=== PATIENT | female | born 1980 | race Caucasian/White ===

== ENCOUNTER 2016-10-08 09:14 | Emergency (ER) | payer OTHER ==
[~2016-10-08] VITALS: Ht 154.9 cm; Wt 113.4 kg
[~2016-10-08 09:14] MED LIST: FEVERALL325 M1 PO
[2016-10-08 09:26] VITALS: BP 135/73
--- NOTE | 2016-10-08 09:29 | NUR ---
PT AMBULATED TO BED 5 AT THIS TIME.
--- NOTE | 2016-10-08 09:30 | NUR ---
[facility] ER MD DR. SALINAS FOR PT EXAM OF ABSCESS TO LEFT BREAST.
--- NOTE | 2016-10-08 09:30 | NUR ---
36F BIB SELF C/O ABSCESS TO LEFT BREAST, THROBBING, NON-RADIATING, 8/10 X YESTERDAY; REDNESS NOTED TO SITE, BUT NO DRAINAGE NOTED AT THIS TIME; PT A&OX4, PERRLA, BL LUNG SOUNDS CLEAR, RR EVEN/UNLABORED, SKIN IS WARM/DRY/INTACT AT THIS TIME; PT DENIES N/V/D AT THIS TIME; PT RESTING IN BED W/ HOB ELEVATED AND IN LOWEST POSITION; POSITIONED FOR COMFORT; ER MD MADE AWARE OF STATUS. WILL CONTINUE TO MONITOR.
--- NOTE | 2016-10-08 09:30 | NUR ---
Dr. Patino evaluating patient at bedside.
[2016-10-08 09:56] VITALS: BP 116/67
--- NOTE | 2016-10-08 09:56 | NUR ---
Patient discharged with v/s stable. Written and verbal after care instructions given and explained. Patient alert, oriented and verbalized understanding of instructions. Ambulatory with steady gait. All questions addressed prior to discharge. ID band removed. Patient advised to follow up with PMD. Rx of MOTRIN 600MG TAB & KEFLEX 500MG given. Patient educated on indication of medication including possible reaction and side effects. Opportunity to ask questions provided and answered.
== END 2016-10-08 09:56 | disposition home or self-care (01) ==
LOC: MED 09:14
DX: N61.1 Abscess of the breast and nipple (principal)

== ENCOUNTER 2017-07-30 05:57 | Emergency (ER) | payer OTHER ==
[~2017-07-30] VITALS: Ht 154.9 cm; Wt 115.7 kg
[~2017-07-30 05:57] MED LIST changes: +ACET325S31 PO; -FEVERALL325 M1 PO
[2017-07-30 05:59] VITALS: BP 118/65
--- NOTE | 2017-07-30 06:04 | NUR ---
PT TAKEN TO BED 11
--- NOTE | 2017-07-30 06:06 | NUR ---
PATIENT IS A 37 Y/O FEMALE WHO PRESENTS TO THE ED C/O COUGH. PT STATES THAT IT HAS BEEN HURTING HER THROAT FOR 3 DAYS. PT REPORTS 10/10 ACHING THROAT PAIN THAT DOES NOT RADIATE. PT DENIES CP, SOB, N/V/D. PT AAOX4, RR EVEN/UNLABORED. PT REPOSITIONED FOR COMFORT, BED IN LOWEST POSITION. ER MD DR. TALAMANTES NOTIFIED. WILL CONTINUE TO MONITOR.
[2017-07-30 06:27] VITALS: BP 121/72
--- NOTE | 2017-07-30 06:27 | NUR ---
Patient discharged with v/s stable. Written and verbal after care instructions given and explained. Patient alert, oriented and verbalized understanding of instructions. Ambulatory with steady gait. All questions addressed prior to discharge. ID band removed. Patient advised to follow up with PMD. Rx of PROMETHAZINE DM 6.25MG-15MG/5ML given. Patient educated on indication of medication including possible reaction and side effects. Opportunity to ask questions provided and answered.
== END 2017-07-30 06:27 | disposition home or self-care (01) ==
LOC: MED 05:57
DX: J06.9 Acute upper respiratory infection, unspecified (principal); Z79.899 Other long term (current) drug therapy; Z91.018 Allergy to other foods
CPT/HCPCS: 99283

== ENCOUNTER 2019-05-08 14:10 | Emergency (ER) | payer MEDICAID, OTHER ==
[~2019-05-08] VITALS: Ht 154.9 cm; Wt 124.3 kg
[2019-05-08 14:42] VITALS: BP 129/79
--- NOTE | 2019-05-08 16:04 | NUR ---
PATIENT AMBULATED TO BED 10.
--- NOTE | 2019-05-08 16:10 | NUR ---
C/O L BREAST ABCESS/PAIN X1 DAY. PT STATES SHE HAS HAD THIS BEFORE ON THE SAME BREAST AND HAS HAD TO HAVE IT DRAINED BEFORE. DENIES FEVER, N/V HX: NONE RX: NONE
--- NOTE | 2019-05-08 17:45 | NUR ---
accompanied DR. TUCKER FOR female patient Ultrasound.
[2019-05-08] MEDS ORDERED: LIDOCAINE MPF 1% 10 MG/ML VIAL INJ ONE (17:50)
--- NOTE | 2019-05-08 19:34 | NUR ---
DR. DAS PERFORMING I&D AT BEDSIDE.
--- NOTE | 2019-05-08 20:18 | NUR ---
ISLAND COMPOSITE DRESSING PLACED ON PT INCISION SITE ON L BREAST, SEALED TO PT BODY
[2019-05-08 20:36] VITALS: BP 130/72
== END 2019-05-08 20:36 | disposition home or self-care (01) ==
LOC: MED 14:10
DX: N61.1 Abscess of the breast and nipple (principal); Z79.899 Other long term (current) drug therapy
CPT/HCPCS: 10060; 99283; J2001

== ENCOUNTER 2019-05-10 05:39 | Emergency (ER) | payer MEDICAID ==
[~2019-05-10] VITALS: Ht 154.9 cm; Wt 124.3 kg
[2019-05-10 05:45] VITALS: BP 100/68
--- NOTE | 2019-05-10 05:45 | NUR ---
PT AMBULATED TO BED #12
--- NOTE | 2019-05-10 05:47 | NUR ---
39 Y/O FEMALE PRESENTS TO ED FOR A WOUND CHECKUP. PT STATES BEING D/C FROM ED FOR AN ABSCESS. WOUND WAS TREATED AND DRAINED PRIOR TO D/C; WAS ADVISED TO RETURN TO ED FOR FOLLOW UP CHECKUP. PT DENIES ANY ABNORMAL DISCHARGE OR BLEEDING. C/O MILD PAIN ON WOUND, 06/17. PT VSS ERMD AWARE. WILL CONTINUE TO MONITOR.
--- NOTE | 2019-05-10 06:05 | NUR ---
Dr. Salinas examining patient.
--- NOTE | 2019-05-10 06:06 | NUR ---
PT WOUND IRRIGATED WITH NORMAL SALINE
--- NOTE | 2019-05-10 06:07 | NUR ---
PT WOUND ON L BREAST COVERED WITH COMPOSITE ISLAND DRESSING
[2019-05-10 06:12] VITALS: BP 100/68
--- NOTE | 2019-05-10 06:12 | NUR ---
PT DISCHARGED WITH PAPERWORK. EDUCATED PT REGARDING D/C INSTRUCTIONS AND DIAGNOSIS. PT VERBALIZED UNDERSTANDING OF TEACHING. TOLD PT TO FOLLOW UP WITH PCP AND WHEN TO RETURN TO ED. PT AT STABLE CONDITION. ALL QUESTIONS ANSWERED.
== END 2019-05-10 06:12 | disposition home or self-care (01) ==
LOC: MED 05:39
DX: N61.1 Abscess of the breast and nipple (principal); Z79.899 Other long term (current) drug therapy
CPT/HCPCS: 99283

== ENCOUNTER 2020-09-19 14:59 | Emergency (ER) | payer SELFPAY ==
[~2020-09-19] VITALS: Ht 154.9 cm; Wt 136.1 kg
[2020-09-19 15:08] VITALS: BP 101/70
--- NOTE | 2020-09-19 15:12 | NUR ---
PT AMBULATED TO ER BED 4.
--- NOTE | 2020-09-19 15:17 | NUR ---
40 Y/O FEMALE C/O LEFT FINGER LAC [id number] WHILE AT HOME CHOPPING BELLPEPPERS. PT DENIES PAIN, DENIES N/V, DENIES FEVER/CHILLS. NO ACTIVE BLEEDING NOTED TO SITE. DENIES PMH NKA
--- NOTE | 2020-09-19 15:19 | NUR ---
XIOMARA Daily at bedside for further evaluation.
[2020-09-19] MEDS ORDERED: IBUPROFEN 600 MG TAB PO ONE (15:25)
[2020-09-19] MEDS ORDERED: IBUP-2213 PO (15:41)
[2020-09-19 16:06] VITALS: BP 101/70
--- NOTE | 2020-09-19 16:07 | NUR ---
Patient discharged with v/s stable. Written and verbal after care instructions given and explained. Patient alert, oriented and verbalized understanding of instructions. Ambulatory with steady gait. All questions addressed prior to discharge. ID band removed. Patient advised to follow up with PMD. Rx of IBUPROFEN 600MG PO TID PRN PAIN given. Patient educated on indication of medication including possible reaction and side effects. Opportunity to ask questions provided and answered.
== END 2020-09-19 16:04 | disposition home or self-care (01) ==
LOC: MED 14:59
DX: S61.217A Laceration without foreign body of left little finger without damage to nail, initial encounter (principal); W26.0XXA Contact with knife, initial encounter; Y93.89 Activity, other specified; Y92.89 Other specified places as the place of occurrence of the external cause; Y99.8 Other external cause status
CPT/HCPCS: 12001; 90471; 90715; 99283

== ENCOUNTER 2023-12-30 14:25 | Emergency (ER) | payer SELFPAY ==
[~2023-12-30] VITALS: Ht 154.9 cm; Wt 130.6 kg
[~2023-12-30 14:25] MED LIST changes: +IBUP-2213 PO
[2023-12-30 14:43] VITALS: BP 140/62; PULSE 86; RESP 20; TEMP 98.4; O2SAT 98
[2023-12-30] MEDS ORDERED: CEPH500C16 PO (15:18)
[2023-12-30 15:37] VITALS: BP 135/61; PULSE 88; RESP 16; TEMP 98.4; O2SAT 99
== END 2023-12-30 15:37 | disposition home or self-care (01) ==
LOC: MED 14:25
DX: L02.11 Cutaneous abscess of neck (principal); Z79.899 Other long term (current) drug therapy
CPT/HCPCS: 99283